=== PATIENT | female | born 1940 | race Caucasian/White ===

== ENCOUNTER 2020-07-16 12:31 | Inpatient (IN) | payer MEDICARE, BC ==
[2020-07-16] VITALS (13 sets, daily range): BP systolic 110–138; BP diastolic 36–78; PULSE 63–81; TEMP 97.9–99.1
[~2020-07-16] VITALS: Ht 157.5 cm; Wt 68.0 kg
--- NOTE | 2020-07-16 12:00 | NUR ---
Patient arrived via EMS to room 345. Alert and oriented x 3. Patient had bloody stool, pericare provided. Transfusion initiated at [place] at 1030, currently infusing at 125ml/hour. Patient unable to recall home meds at this time. Will continue to monitor.
[~2020-07-16 12:31] MED LIST: ALDACTONE 25MG25 M1 PO; CALCIUM 600600 M2 PO; CARDI-OMEGA1000 MG PO; COREG 3.123.125 MG/T PO; COUMADIN 2MG2 MG/TAB PO; COUMADIN 5MG5 MG/TAB PO; HYZAAR 25 MG-101 TAB PO; LANOXIN 0.25M0.25 MG PO; LASIX 40MG TABL40 MG PO; LOTENSIN40 MG PO; LOVENOX 8080 MG/0.8 SQ; MICRO-K 10 EXT10 MEQ PO; NYSTATIN OR100 MU/ML PO; PERCOCET 325 MG1 TA2 PO; PROTONIX20 MG PO; VIBRAMYCININJ IV; VITAMIN D2000 I1 PO; XALATAN EYE DROPS OU
--- NOTE | 2020-07-16 14:00 | NUR ---
Transfusion completed at this time. VS charted. Ally from PICC team here to place picc line. VSS. Denies further needs at this time.
[2020-07-16 14:39] LABS: INR 3.3 (0.8-3.0); PROTHROMBIN TIME 37.7 SECONDS (9.7-12.8)
[2020-07-16 14:43] LABS: HEMATOCRIT 19.7 % (37.0-47.0)
[2020-07-16 14:45] LABS: HEMOGLOBIN 6.2 g/dl (12.5-16.0)
--- NOTE | 2020-07-16 14:45 | NUR ---
Notified Dr. Yusuf of [facility]
[2020-07-16] MEDS ORDERED: ASPIRIN 81M81 MG/TA2 PO (15:21)
[2020-07-16] MEDS ORDERED: LIPITOR 40MG TA40 MG PO (15:21)
[2020-07-16] MEDS ORDERED: ZEBETA10 MG PO (15:22)
[2020-07-16] MEDS ORDERED: PLAVIX 75MG TAB75 MG PO (15:22)
[2020-07-16] MEDS ORDERED: LASIX 40MG TABL40 MG PO (15:23)
[2020-07-16] MEDS ORDERED: NITROSTAT0.4 MG/TAB SL (15:23)
[2020-07-16] MEDS ORDERED: COUMADIN 3MG3 MG/TAB PO (15:24)
[2020-07-16] MEDS ORDERED: K-TAB20 PO (15:24)
--- NOTE | 2020-07-16 15:39 | NUR ---
Notified radiology about echo
--- NOTE | 2020-07-16 18:00 | NUR ---
Blood transfusion initiated per orders. VSS. This nurse remained with patient for initial 15 min of transfusion. Assisted patient to bedpan, had loose bloody BM. Denies pain or further needs at this time. Will continue to monitor.
--- NOTE | 2020-07-16 18:36 | NUR ---
Patient doing well this afternoon. Transfusion infusing per orders. VSS. Denies further needs at this time. 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
[2020-07-16] MEDS ORDERED: BROVANA15 MCG/2 M IH (19:35)
--- NOTE | 2020-07-16 19:38 | NUR ---
Incontinent of bowel. Cares provided. Assessment complete. Lungs clear. Heart sounds normal. bowels active x4. Pulses present throughout. Left lower extremity edema +1. reports bilateral knee pain 6/10. Provided with PRN percocet at this time. Bilateral hip bruising present. PICC to right upper infusing blood transfusion without complications at this time. Denies needs. will monitor. Call light in reach. Bed alarm in place.
[2020-07-16 21:33] LABS: INR 1.7 (0.8-3.0); PROTHROMBIN TIME 19.1 SECONDS (9.7-12.8)
[2020-07-16 21:58] LABS: HEMATOCRIT 22.3 % (37.0-47.0); HEMOGLOBIN 7.3 g/dl (12.5-16.0)
[2020-07-17] VITALS (12 sets, daily range): BP systolic 115–141; BP diastolic 44–58; PULSE 56–86; TEMP 97.5–99.1
--- NOTE | 2020-07-17 00:01 | NUR ---
Incontinent of bowel. Cares provided. Sofi IQBAL was notified of patient hemoglobin results. No new orders at this time.
--- NOTE | 2020-07-17 00:16 | NUR ---
reports 7/10 knee pain. Provided with PRN percocet. Incontinent of bowel. Cares provided.
--- NOTE | 2020-07-17 03:53 | NUR ---
Resting in bed. Denies needs. Call light in reach.
--- NOTE | 2020-07-17 06:15 | NUR ---
Patient required x2 doses of percocet for pain control. Had several bloody incontinent stools. Otherwise uneventful night. Resting in bed this AM.
--- NOTE | 2020-07-17 07:02 | NUR ---
Report given to MELANIE Feliz
--- NOTE | 2020-07-17 08:00 | NUR ---
Patient in bed resting. Alert and oriented x 3. Assessment complete. PICC line to [place] without complications, fluids infusing per orders. Denies further needs at this time. Will continue to monitor.
[2020-07-17 08:08] LABS: BASO % 0.4 % (0.0-2.0); EOS # 0.2 (0.0-0.7); GRAN % 71.2 % (42.2-75.2); INR 1.3 (0.8-3.0); LYMPH # 1.4 (1.2-3.4); LYMPH % 16.2 % (20.0-51.0); MEAN CELL VOLUME 91 fl (80.0-100.0); MEAN CORPUSCULAR HGB CONC 32 g/dl (33.0-37.0); MEAN PLATELET VOLUME 10.6 fl (7.4-10.4); MONO # 0.8 (0.1-0.6); MONO % 9.8 % (1.7-9.3); PLATELET COUNT 170 K/mm3 (130-400); PROTHROMBIN TIME 14.7 SECONDS (9.7-12.8); RED BLOOD COUNT 2.21 M/mm3 (4.10-5.30); REDCELL DISTRIBUTION WIDTH-CV 16.7 % (11.5-14.5)
[2020-07-17 08:12] LABS: CALCIUM 7.6 mg/dL (8.4-10.2); CREATININE, serum 1.51 (0.52-1.25); POTASSIUM 3.7 mmol/L (3.4-5.0)
[2020-07-17 08:15] LABS: HEMATOCRIT 20.2 % (37.0-47.0); HEMOGLOBIN 6.5 g/dl (12.5-16.0); MEAN CORPUSCULAR HEMOGLOBIN 29 pg (27.0-31.0)
--- NOTE | 2020-07-17 08:30 | NUR ---
Patient called out to nurses station, requests pain meds for chronic knee pain. Medications were given per orders.
[2020-07-17 08:40] LABS: PARTIAL THROMBOPLASTIN TIME 27.6 SECONDS (26.0-37.0)
--- NOTE | 2020-07-17 09:11 | NUR ---
Contacted blood bank about PRBC order.
--- NOTE | 2020-07-17 09:13 | NUR ---
Contacted Dr. Yusuf to verify heparin gtt.
--- NOTE | 2020-07-17 09:25 | NUR ---
Heparin initiated per orders. Educated patient on heparin drip
--- NOTE | 2020-07-17 10:56 | NUR ---
Patient down for EGD by bed.
--- NOTE | 2020-07-17 11:43 | NUR ---
Patient up from EGD. VSS. Denies pain at this time. Heparin restarted per orders.
--- NOTE | 2020-07-17 12:30 | NUR ---
Blood transfusion initiated per orders. Remained with patient, initial 15 minutes of transfusion. Denies further needs at this time. Will continue to monitor.
--- NOTE | 2020-07-17 12:48 | NUR ---
SW met with patient to complete intake. Patient states that she lives alone. She provides that she has two close sisters Isidra [phone] and Minerva Acosta [phone]. Patient provides that these two sisters are listed as her DPOA-HC as well. Patient states that she utilizes a walker at home and is independent with her ADL's. Patient provides that her PCP is Dr. Liv Sierra and that she obtains her medications from [facility]. Patient also states that she is able to afford her medications at this time. Patient provides that she plans to go back home upon discharge and feels safe with doing so. SW will continue to follow.
--- NOTE | 2020-07-17 15:10 | NUR ---
Notified of Hep xa, heparin off at this time, recheck hep xa and ptt at 1700 per orders
[2020-07-17 15:33] LABS: HEMATOCRIT 27.2 % (37.0-47.0); HEMOGLOBIN 8.6 g/dl (12.5-16.0)
[2020-07-17 17:50] LABS: PARTIAL THROMBOPLASTIN TIME 213.8 SECONDS (26.0-37.0)
--- NOTE | 2020-07-17 17:55 | NUR ---
HEP XA AT 1.3 will hold for additional 2 hrs and recheck at 1900
--- NOTE | 2020-07-17 18:41 | NUR ---
Will report off to trick rodeo rider.
[2020-07-17 19:33] LABS: PARTIAL THROMBOPLASTIN TIME 101.3 SECONDS (26.0-37.0)
--- NOTE | 2020-07-17 23:21 | NUR ---
Medicated with Percocet 1 tab for pain to knees 05/05. Hep gtt infusing to right PICC at 10.5cc/hr. Pt is alert and oriented x4. Denies pain to abdomen. Turning self side to side.
[2020-07-17 23:22] LABS: HEMATOCRIT 23.4 % (37.0-47.0); HEMOGLOBIN 7.4 g/dl (12.5-16.0)
[2020-07-18] VITALS (12 sets, daily range): BP systolic 117–146; BP diastolic 41–75; PULSE 69–96; TEMP 97.5–98.7
--- NOTE | 2020-07-18 02:35 | NUR ---
Placed Hep gtt on hold for 2 hrs d/t Hep XA >1.0.
--- NOTE | 2020-07-18 05:29 | NUR ---
Medicated with Percocet 1 tab for knee pain. Denies urge to void. No stools this shift.
[2020-07-18 06:57] LABS: BASO % 0.5 % (0.0-2.0); EOS # 0.2 (0.0-0.7); EOS % 1.9 % (0-4.0); GRAN % 70.3 % (42.2-75.2); LYMPH # 1.5 (1.2-3.4); LYMPH % 17.9 % (20.0-51.0); MEAN CELL VOLUME 93 fl (80.0-100.0); MEAN CORPUSCULAR HGB CONC 32 g/dl (33.0-37.0); MONO # 0.8 (0.1-0.6); MONO % 9.2 % (1.7-9.3); PLATELET COUNT 147 K/mm3 (130-400); RED BLOOD COUNT 2.32 M/mm3 (4.10-5.30); REDCELL DISTRIBUTION WIDTH-CV 16.3 % (11.5-14.5)
[2020-07-18 07:12] LABS: ALBUMIN 2.3 gm/dL (3.5-5.0); BILIRUBIN,TOTAL 1.3 mg/dL (0.0-1.0); CALCIUM 7.1 mg/dL (8.4-10.2); CREATININE, serum 1.33 (0.52-1.25); POTASSIUM 3.5 mmol/L (3.4-5.0); TOTAL PROTEIN 4.5 gm/dL (6.4-8.2)
--- NOTE | 2020-07-18 07:25 | NUR ---
NOTIFIED OF CRITICAL OF HGB:6.9.
[2020-07-18 07:26] LABS: HEMATOCRIT 21.6 % (37.0-47.0); HEMOGLOBIN 6.9 g/dl (12.5-16.0); MEAN CORPUSCULAR HEMOGLOBIN 30 pg (27.0-31.0)
--- NOTE | 2020-07-18 07:40 | NUR ---
CALLED AND NOTIFIED OF HGB RESULT OF 6.9 THIS MORNING. TORB TO ORDER AND TRANSFUSE 1 UNIT OF PRBC FROM TO THIS NURSE. ORDER PUT IN SYSTEM. LAB CALLED AND NOTIFIED OF UNIT ORDER.
--- NOTE | 2020-07-18 08:30 | NUR ---
HEPARIN DRIP RESTARTED AT 7.5ML/HR PER PROTOCOL. THIS NURSE SPOKE WITH CHARGE IOANA CHAVEZ RN; MELANIE QUINTERO AND THE PHARMACIST. HEPARIN HAD BEEN SHUT OFF SINCE 0230. NEXT HEPXA CHECK AT 1430.
[2020-07-18 09:24] LABS: INR 1.6 (0.8-3.0); PROTHROMBIN TIME 17.5 SECONDS (9.7-12.8)
[2020-07-18 15:10] LABS: HEMATOCRIT 23.7 % (37.0-47.0); HEMOGLOBIN 7.5 g/dl (12.5-16.0)
--- NOTE | 2020-07-18 15:18 | NUR ---
PATIENT CALLED OUT STATING THAT SHE DID NOT FEEL WELL. UPON ENTRY TO THE ROOM THE PATIENT HAD ALREADY HAD A LARGE EPISODE OF EMESIS. PATIENT GIVEN PRN DOSE OF IV ZOFRAN. PATIENT GIVEN BED BATH AND LINENS CHANGED. PATIENT UP TO THE CHAIR THIS AFTERNOON. WILL CONTINUE TO MONITOR.
--- NOTE | 2020-07-18 17:07 | NUR ---
Received a call from Hospitalist that patient would like [facility]. Previous noted had indicated that patient had declined services. SW spoke with patient who chose [facility], and [facility] as potential services. SW called both agencies and left messages that referrals will be sent, and faxed over referrals. Patient was informed that due to late nature of request, agencies may not be able to contact him immediately. Patient was discharged 07/18/2020.
--- NOTE | 2020-07-18 19:27 | NUR ---
PATIENT HAS NOT HAD ANY FURTHER EMESIS DURING THIS SHIFT. PATIENT REPORTS THAT SHE STILL DOES NO FEEL WELL. LAB CALLED ON UNIT OF BLOOD. IT IS NOT SHOWING READY ON OUR END. BLOOD BANK STATES THAT IT IS READY TO TRANFUSE. BEDSIDE REPORT GIVEN TO MELANIE ORDONEZ.
--- NOTE | 2020-07-18 19:27 | NUR ---
MEDICATED WITH PERCOCET 1 TAB AT THIS TIME FOR KNEE PAIN 05/05.
--- NOTE | 2020-07-18 20:00 | NUR ---
HAS SMALL INCONTINENT LOOSE BLACK STOOL, LUCY CARE PROVIDED. HAD MOD LOOSE BLACK STOOL ON BSC PRIOR.
--- NOTE | 2020-07-18 20:46 | NUR ---
TRANSFUSION STARTED, INFUSING [id number] TO RIGHT PICC WITHOUT PROBLEM.
[2020-07-19 00:12] LABS: HEMATOCRIT 27.3 % (37.0-47.0); HEMOGLOBIN 8.6 g/dl (12.5-16.0)
--- NOTE | 2020-07-19 02:05 | NUR ---
PERCOCET GIVEN FOR KNEE PAIN AT THIS TIME.
[2020-07-19 04:11] VITALS: BP 119/41; PULSE 71; TEMP 98.2
--- NOTE | 2020-07-19 05:24 | NUR ---
RN NOTIFIED OF ACUTE [place] ON PATIENTS EKG THIS MORNING.
--- NOTE | 2020-07-19 06:05 | NUR ---
PT TAKES PERCOCET 1 TAB FOR KNEE PAIN AT THIS TIME. HAS RESTED WELL THIS SHIFT.
[2020-07-19 06:31] LABS: BASO % 0.4 % (0.0-2.0); EOS # 0.3 (0.0-0.7); EOS % 3.6 % (0-4.0); GRAN # 4.5 (1.4-6.5); GRAN % 65.6 % (42.2-75.2); LYMPH # 1.4 (1.2-3.4); LYMPH % 19.8 % (20.0-51.0); MEAN CELL VOLUME 93 fl (80.0-100.0); MEAN CORPUSCULAR HGB CONC 32 g/dl (33.0-37.0); MEAN PLATELET VOLUME 10.7 fl (7.4-10.4); MONO # 0.7 (0.1-0.6); MONO % 10.3 % (1.7-9.3); PLATELET COUNT 161 K/mm3 (130-400); RED BLOOD COUNT 2.83 M/mm3 (4.10-5.30)
[2020-07-19 06:39] LABS: HEMATOCRIT 26.3 % (37.0-47.0); HEMOGLOBIN 8.4 g/dl (12.5-16.0); MEAN CORPUSCULAR HEMOGLOBIN 30 pg (27.0-31.0)
[2020-07-19 06:43] LABS: CALCIUM 7.4 mg/dL (8.4-10.2); CREATININE, serum 1.21 (0.52-1.25); POTASSIUM 3.3 mmol/L (3.4-5.0)
[2020-07-19 07:01] LABS: INR 2.9 (0.8-3.0)
[2020-07-19 08:53] VITALS: BP 134/71; PULSE 72; TEMP 98
[2020-07-19] MEDS ORDERED: COUMADIN4 MG PO (09:12)
--- NOTE | 2020-07-19 10:30 | NUR ---
CARDIOLOGY AT BEDSIDE.
[2020-07-19 12:06] VITALS: BP 128/57; PULSE 76; TEMP 98.1
--- NOTE | 2020-07-19 14:48 | NUR ---
Initial visit; Patient thanked Wardrobe Specialist for looking in on her, listening and offering prayer and by request a reading from the Bible which Wardrobe Specialist chose [place] which called for additional discussion about patient's mehreen and how she has counted on God throughout her life. Wardrobe Specialist will follow-up.
[2020-07-19 15:52] LABS: HEMOGLOBIN 8.7 g/dl (12.5-16.0)
--- NOTE | 2020-07-19 15:54 | NUR ---
Fish Culturist attended clinical rounds with the team. Hospitalist discussed possible need for post acute rehab upon discharge. Patient states if it is necessary, she would like [facility]. OTILIA contacted Renetta at [facility] and faxed referral. Renetta reviewed referral and advised that they are likely able to accept. OTILIA spoke with PAUAL Bustos who advised she would recommend [facility] over home with home health services. OTILIA followed up with patient who is agreeable to [facility] and states her sister, Isidra would be able to transport her. If her sister cannot take her, patient reports she has a niece who is on stand by. OTILIA will continue to follow.
[2020-07-19 16:13] VITALS: BP 125/54; PULSE 70; TEMP 98.5
[2020-07-19 19:22] VITALS: BP 123/56; PULSE 70; TEMP 98.2
--- NOTE | 2020-07-19 20:00 | NUR ---
Assessment complete at this time. Patient complains of pain 9/10 in bilat knees, which is chronic for her. 1 Percocet adminstered to manage pain. Will continue to monitor.
[2020-07-19 23:32] VITALS: BP 125/48; PULSE 72; TEMP 98.4
[2020-07-20 03:26] VITALS: BP 125/55; PULSE 74; TEMP 98.4
[2020-07-20 06:57] LABS: BASO % 0.5 % (0.0-2.0); EOS # 0.3 (0.0-0.7); EOS % 4.5 % (0-4.0); GRAN # 3.5 (1.4-6.5); GRAN % 59.3 % (42.2-75.2); LYMPH # 1.4 (1.2-3.4); LYMPH % 23.5 % (20.0-51.0); MEAN CELL VOLUME 94 fl (80.0-100.0); MEAN CORPUSCULAR HGB CONC 31 g/dl (33.0-37.0); MEAN PLATELET VOLUME 10.7 fl (7.4-10.4); MONO # 0.7 (0.1-0.6); PLATELET COUNT 181 K/mm3 (130-400); RED BLOOD COUNT 2.87 M/mm3 (4.10-5.30); REDCELL DISTRIBUTION WIDTH-CV 17.3 % (11.5-14.5)
[2020-07-20 06:59] LABS: HEMATOCRIT 27.1 % (37.0-47.0); HEMOGLOBIN 8.4 g/dl (12.5-16.0); MEAN CORPUSCULAR HEMOGLOBIN 29 pg (27.0-31.0)
[2020-07-20 07:12] LABS: CALCIUM 7.7 mg/dL (8.4-10.2); CREATININE, serum 1.16 (0.52-1.25)
[2020-07-20 07:14] LABS: INR 4.2 (0.8-3.0)
[2020-07-20 07:22] VITALS: BP 121/49; PULSE 70; TEMP 98.4
[2020-07-20 07:29] LABS: PROTHROMBIN TIME 47.9 SECONDS (9.7-12.8)
[2020-07-20] MEDS ORDERED: PROTONIX 40MG T40 MG PO (09:18)
[2020-07-20] MEDS ORDERED: ASPIRIN E.C. 8181 MG PO (09:18)
[2020-07-20] MEDS ORDERED: LASIX 20MG TABL20 MG PO (09:31)
[2020-07-20 11:23] VITALS: BP 126/44; PULSE 70; TEMP 98.2
[2020-07-20 11:54] VITALS: BP 126/44; PULSE 70; TEMP 98.2
--- NOTE | 2020-07-20 14:00 | NUR ---
PATIENT DISCHARGING VIA WC TO [facility] WITH FAMILY. PATIENT SENT WITH RIGHT UPPER ARM PICC LINE PER [facility] RECOMMENDATIONS AND VERBAL ORDER FROM HOSPITALIST TEAM. PATIENT DRESSED AND PACKED FOR DISCHARGE. SENT PERSONAL BELONGINGS. CALLED REPORT TO NURSE IN [place]. SENT INFO PACKET. PATIENT DISCHARGED.
--- NOTE | 2020-07-20 14:29 | NUR ---
Wildlife Biology Technician faxed updates to Renetta at [facility]. Renetta advised that pending DrYvan to Dr. casiano, they were able to accept today. OTILIA provided contact information for Dr. Sierra (ph#[phone]) to Hospitalist, who made call. OTILIA met with patient who then contacted her sister, Abdias. Patient's sister will pick her up around 1300. OTILIA left message for Renetta at [facility] providing transport time. OTILIA read IM form aloud to patient who verbalized understanding and gave SW permission to sign on her behalf. OTLIIA placed form in chart and provided copy to patient. OTILIA provided transport time and report # to Anu NAVARRO. OTILIA faxed discharge orders to Renetta at [facility]. No additional needs at this time.
== END 2020-07-20 14:00 | disposition swing bed (61) | DRG 813 ==
LOC: SURG 12:31
PROVIDERS: Internal Medicine Gastroenterology; ADMIT Hospitalist
PROC: 0DJ08ZZ Inspection of Upper Intestinal Tract, Via Natural or Artificial Opening Endoscopic (ICD-10-PCS; principal; 2020-07-17 10:00)
DX: D68.32 Hemorrhagic disorder due to extrinsic circulating anticoagulants (principal); K22.11 Ulcer of esophagus with bleeding; I48.20 Chronic atrial fibrillation, unspecified; N17.9 Acute kidney failure, unspecified; D50.0 Iron deficiency anemia secondary to blood loss (chronic); I25.10 Atherosclerotic heart disease of native coronary artery without angina pectoris; N18.3 Chronic kidney disease, stage 3 (moderate); E78.5 Hyperlipidemia, unspecified; T45.515A Adverse effect of anticoagulants, initial encounter; H40.9 Unspecified glaucoma; K44.9 Diaphragmatic hernia without obstruction or gangrene; K29.30 Chronic superficial gastritis without bleeding; K57.10 Diverticulosis of small intestine without perforation or abscess without bleeding; Z95.2 Presence of prosthetic heart valve; Z95.5 Presence of coronary angioplasty implant and graft; Z79.01 Long term (current) use of anticoagulants
CPT/HCPCS: 99222-AI; 99231-AI; 99232-AI; 99239; C1751; C9113; J1644; J2405; J2704; J7030; P9016